=== PATIENT | male | born 1965 | race Caucasian/White ===

== ENCOUNTER 2021-07-30 08:34 | Day surgery (SDC) | payer BC ==
[2021-07-24 12:27] LABS: Absolute Lymphocytes (CBC) 1.6 K/uL (0.7-4.9); Basophils % 0.5 % (0-1.3); Hematocrit 42.4 % (39.6-49.0); Lymphocytes % 15.5 % (15.3-44.8); MPV 6.8 fL (7.6-11.3); RBC Red Blood Cell Count 4.79 M/uL (4.33-5.43)
[2021-07-24 12:32] LABS: Protime INR 1.03
[2021-07-24 12:35] LABS: Potassium 3.5 mmol/L (3.5-5.1)
--- NOTE | 2021-07-24 12:37 | RAD REPORT ---
EXAM DESCRIPTION: RAD - Chest Pa And Lat (2 Views) - 07/24/2021 12:16 pm CLINICAL HISTORY: preop COMPARISON: CHEST SINGLE VIEW dated 04/03/2013 FINDINGS: Lines: None. Lungs: No evidence of edema or pneumonia. Pleural: No significant pleural effusions or pneumothorax. Cardiac: The heart size is within normal limits. Bones: No acute fractures. Other: IMPRESSION: No acute cardiopulmonary disease.
[2021-07-30] MEDS ORDERED: Ringers Lactate 1,000 ML IV ONE (09:39)
[2021-07-30] MEDS ORDERED: CEFAZOLIN/SWI 1gm 1 GM/10 ML SYR ONE (09:39)
[2021-07-30] MEDS ORDERED: propofoL 200 MG/20 ML VIAL IV ONE (10:02)
[2021-07-30] MEDS ORDERED: LIDOCAINE 2% MPF 5 ML VIAL ONE (10:02)
[2021-07-30] MEDS ORDERED: FENTANYL CITR 100 MCG/2 ML ONE ×2 (10:02→11:10)
[2021-07-30] MEDS ORDERED: MIDAZOLAM HCL 2 MG/2 ML INJ ONE (10:02)
[2021-07-30] MEDS ORDERED: dexAMETHasone 10 MG/ML VIAL ONE (10:43)
[2021-07-30] MEDS: BUPIVACAINE 0.25% PF 10 ML VIAL ONE ×2 (10:53→11:06)
--- NOTE | 2021-07-30 11:21 | P.BOP ---
Preoperative diagnosis: right knee medial meniscus tear Postoperative diagnosis: same Primary procedure: right knee partial medial meniscectomy Secondary procedure: none Overnight Stocker: NONE,NONE Estimated blood loss: 3 cc Specimen: none Findings: see dictation Anesthesia: General Complications: None Implants: none Fluids & blood products: per anesthesia record; TT: 29 mins @ 300 mmHg Transferred to: Recovery Room Condition: Good
[2021-07-30] MEDS ORDERED: GLYCOPYRROLATE 0.2 MG/ML SYR ONE (11:27)
[2021-07-30] MEDS ORDERED: KETOROLAC 30 MG/ML INJ ONE (11:33)
[2021-07-30 11:50] VITALS: O2SAT 97
[2021-07-30] MEDS ORDERED: ONDANSETRON 4 MG/2 ML VIAL ONE (12:03)
[2021-07-30] MEDS ORDERED: HYDROCODONE/APAP 5/325 MG TAB ONE (13:05)
[2021-07-30 14:03] VITALS: BP 133/75; TEMP 97
--- NOTE | 2021-07-31 00:43 | OP ---
Date of Procedure: 07/30/2021 Surgeon: Compa Buckley MD Preoperative Diagnosis: Right knee medial meniscus tear. Postoperative Diagnosis: Right knee medial meniscus tear. Procedure Performed: Right knee arthroscopic partial medial meniscectomy. Anesthesia: General, LMA. Fluids: Per Anesthesia record. Estimated Blood Loss: 3 cc. Complications: None. Tourniquet Time: 29 minutes at 300 mmHg. Indication For Procedure: Addison is a 55-year-old male who presented to my clinic, signs and symptoms and MRI findings consistent with a right knee complex medial meniscus tear. I discussed with the cole cheng risks and benefits associated with operative and nonoperative treatment. He expressed understa nding. I would like to proceed with operative treatment. Description Of Procedure: After informed consent was obtained, the patient was identified in the pre operative holding area. The right lower extremity was marked. The patient was then brought back to the operating room, transferred to the operating table in the supine fashion, placed under general LM A anesthesia. The right lower extremity was then prepped and draped in usual sterile fashion. A arpita e-out was initiated. The correct patient and procedure were confirmed and identified. The patient d id receive his preoperative prophylactic antibiotics. The right lower extremity was then exsanguinat ed using Esmarch and tourniquet was inflated to 300 mmHg. Standard anteromedial and anterolateral po rtals were created. Arthroscope was brought in via the anterolateral approach and a diagnostic arthr oscopy was performed. 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 There were no loose bodies found within the lateral medial gutters. Arthroscope was then brought in the medial compartment where the patient was noted to have a complex tear of the posterior horn and body of the medial meniscus. An arthroscopic shaver and ok niscal biter were then used to perform a partial medial meniscectomy to stable meniscal borders. 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 The arthroscope was then brought to the intercondylar notch. The patient wa s noted to have an intact ACL and PCL, which were stable to probe. The arthroscope was then brought in the lateral compartment where the patient was noted to have an intact ACL and lateral meniscus, an d no significant chondromalacia changes of the lateral femoral condyle and lateral tibial plateau. A rthroscopic instruments were then removed without complication. Wound was then irrigated thoroughly with normal saline. Skin was approximated using a 3-0 Monocryl. Sterile dressings were applied. To urniquet was let down. The patient was awakened and transferred to PACU in stable condition. Postoperative Plan: The patient will be weightbearing as tolerated on the right lower extremity. Ph ysical Therapy will be consulted to aid with normalization per post-menisectomy protocol. He will fo llow up next week for wound check. CV/MODL Voice ID: [id number] Report ID: [id number]
== END 2021-07-30 13:12 | disposition home or self-care (01) ==
LOC: OR 08:34
PROVIDERS: ATTEND Orthopaedic Surgery Sports Medicine
PROC: 0SBC4ZZ Excision of Right Knee Joint, Percutaneous Endoscopic Approach (ICD-10-PCS; principal; 2021-07-30 10:00)
DX: S83.241A Other tear of medial meniscus, current injury, right knee, initial encounter (principal); M17.11 Unilateral primary osteoarthritis, right knee; Z20.822 Contact with and (suspected) exposure to COVID-19
CPT/HCPCS: 93005; 85025; 80048; 36415; 85610; 85730; 71046; 29881; U0002; J2704; J2250; J3010 ×2; J1100; J0690; J7120; J2405